=== PATIENT | female | born 1960 | race Caucasian/White ===

== ENCOUNTER 2018-01-22 12:59 | Emergency (ER) | payer MEDICAID ==
[~2018-01-22] VITALS: Ht 152.4 cm; Wt 47.9 kg
[2018-01-22 13:16] VITALS: Ht 152.4 cm; Wt 47.9 kg
[2018-01-22 15:02] VITALS: BP 104/66
== END 2018-01-22 15:02 | disposition home or self-care (01) ==
LOC: ED 12:59
DX: N39.0 Urinary tract infection, site not specified (principal)
CPT/HCPCS: J1885